=== PATIENT | female | born 1965 | race Two or more races ===

== ENCOUNTER 2021-03-18 23:35 | Inpatient (IN) | payer MEDICARE, MEDICAID ==
[~2021-03-18] VITALS: Ht 165.1 cm; Wt 136.5 kg
[2021-03-19] MEDS ORDERED: MORPHINE SULFATE 4 MG/ML CPJ (NOT FOR IM USE) IV STA (00:37)
[2021-03-19] MEDS ORDERED: ONDANSETRON HCL 4MG/2ML INJ IV STA (00:37)
[2021-03-19] MEDS ORDERED: ASPIRIN 81MG TABLET PO ONE (00:45)
[2021-03-19] MEDS ORDERED: NITROGLYCERIN OINT 1GM/INCH UDPKT TD ONE (00:45)
[2021-03-19 01:17] LABS: BASOPHILS % 0.7 % (0.0-2.0); EOSINOPHILS % 2.2 % (0.0-5.0); HEMATOCRIT. 37.1 % (36.0-48.0); HEMOGLOBIN. 12.6 g/dL (12.0-16.0); LYMPHOCYTES % 43.9 % (20.0-50.0); MEAN CORPUSCULAR HEMOGLOBIN 32.7 pg (28.0-32.0); MEAN CORPUSCULAR VOLUME 96.5 fL (81.0-99.0); MEAN PLATELET VOLUME 7.3 fl (7.4-10.4); MONOCYTES % 11.3 % (2.0-8.0); NEUTROPHILS % 41.9 % (40.0-76.0); PLATELET 263 x1000/uL (130-400); RED BLOOD CELL COUNT 3.84 mill/uL (4.2-5.4); RED CELL DISTRIBUTION WIDTH 14.9 % (11.6-14.6)
[2021-03-19 01:23] LABS: CHLORIDE 106 mEq/L (98-107)
[2021-03-19 01:40] LABS: INR 3.6; PROTHROMBIN TIME 35.1 sec (9.6-11.0)
[2021-03-19] MEDS ORDERED: IOHEXOL-350 100 ML BOTTLE ONE (02:56)
[2021-03-19] MEDS ORDERED: CEFTRIAXONE 1 G PREMIX 50 ML IV ONE (03:15)
[2021-03-19] MEDS ORDERED: MORPHINE SULFATE 2 MG/ML CPJ (NOT FOR IM USE) IV SCH (07:00)
[2021-03-19 09:40] VITALS: BP 158/68
[2021-03-19 10:00] VITALS: BP 158/68
[2021-03-19 12:00] VITALS: BP 146/66
[2021-03-19] MEDS ORDERED: OXYC-105 PO (12:12)
[2021-03-19] MEDS ORDERED: WARF10TA44 PO (12:12)
[2021-03-19] MEDS ORDERED: FURO-151 PO (12:12)
[2021-03-19] MEDS ORDERED: PROSOL IH (12:14)
[2021-03-19] MEDS ORDERED: HYDROCODONE/ACETAMINOPHEN 5/325MG TABLET PO PRN (12:15)
[2021-03-19] MEDS ORDERED: CLONIDINE 0.1MG TABLET PO PRN (12:15)
[2021-03-19] MEDS ORDERED: MAGNESIUM/ALUMINUM HYDROXIDE/SIMETHICONE 30ML UDC PO PRN (12:15)
[2021-03-19] MEDS ORDERED: ONDANSETRON HCL 4MG/2ML INJ IV PRN (12:15)
[2021-03-19] MEDS ORDERED: ACETAMINOPHEN 325MG TABLET PO PRN (12:15)
[2021-03-19] MEDS ORDERED: DOCUSATE SODIUM 100MG CAPSULE PO PRN (12:15)
[2021-03-19] MEDS ORDERED: NALOXONE HCL 0.4MG/ML VIAL IV PRN (12:45)
[2021-03-19] MEDS: FUROSEMIDE 40MG/4ML VIAL IVP SCH (12:50)
[2021-03-19] MEDS: OMEPRAZOLE 20MG CAPSULE EXTENDED RELEASE PO SCH (12:51)
[2021-03-19 15:46] LABS: *AMPHETAMINES SCREEN URINE NEGATIVE (NEGATIVE); *BENZODIAZEPINES SCREEN URINE NEGATIVE (NEGATIVE)
[2021-03-19 15:49] LABS: METHADONE URINE SCREEN NEGATIVE (NEGATIVE); OPIATES URINE SCREEN PRESUMTIVE POSITIVE (NEGATIVE)
[2021-03-19 15:52] LABS: *COCAINE SCREEN URINE NEGATIVE (NEGATIVE)
[2021-03-19 15:53] LABS: *BARBITURATES SCREEN URINE NEGATIVE (NEGATIVE)
[2021-03-19 15:56] LABS: CANNABINOID URINE SCREEN NEGATIVE (NEGATIVE); PHENCYCLIDINE URINE SCREEN NEGATIVE (NEGATIVE)
[2021-03-19 16:00] VITALS: BP 160/58
[2021-03-19] MEDS: OXYCODONE HCL/ACETAMINOPHEN 5/325MG TABLET PO PRN (16:33)
[2021-03-19] MEDS: DILTIAZEM HCL 60MG TABLET PO SCH ×2 (17:41→23:22)
[2021-03-19 20:00] VITALS: BP 114/79
[2021-03-19] MEDS: ZOLPIDEM TARTRATE 5MG TABLET PO PRN (21:08)
[2021-03-19] MEDS ORDERED: DIPHENHYDRAMINE 50MG CAPSULE PO PRN (23:15)
[2021-03-20] VITALS: BP 162/76
[2021-03-20 05:00] VITALS: BP 136/79
[2021-03-20 06:15] LABS: INR 2.2; PROTHROMBIN TIME 22.4 sec (9.6-11.0)
[2021-03-20] MEDS: OMEPRAZOLE 20MG CAPSULE EXTENDED RELEASE PO SCH (06:18)
[2021-03-20] MEDS: DILTIAZEM HCL 60MG TABLET PO SCH ×2 (06:18→12:08)
[2021-03-20 06:25] LABS: CHLORIDE 104 mEq/L (98-107)
[2021-03-20 06:34] LABS: BASOPHILS % 0.6 % (0.0-2.0); EOSINOPHILS % 1.2 % (0.0-5.0); HEMATOCRIT. 36.9 % (36.0-48.0); HEMOGLOBIN. 12.3 g/dL (12.0-16.0); LYMPHOCYTES % 33.4 % (20.0-50.0); MEAN CORPUSCULAR HEMOGLOBIN 32.1 pg (28.0-32.0); MEAN CORPUSCULAR VOLUME 96.6 fL (81.0-99.0); MEAN PLATELET VOLUME 8.1 fl (7.4-10.4); MONOCYTES % 11.4 % (2.0-8.0); NEUTROPHILS % 53.4 % (40.0-76.0); PLATELET 246 x1000/uL (130-400); RED BLOOD CELL COUNT 3.82 mill/uL (4.2-5.4); RED CELL DISTRIBUTION WIDTH 14.6 % (11.6-14.6)
[2021-03-20 06:35] LABS: T4 FREE 0.82 ng/dL (0.76-1.46)
[2021-03-20 06:36] LABS: LDL CHOLESTEROL 99 mg/dL (5-100); PHOSPHORUS 2.7 mg/dL (2.5-4.9)
[2021-03-20 06:38] LABS: HDL CHOLESTEROL 84 mg/dL (40-59)
[2021-03-20 08:00] VITALS: BP 149/63
[2021-03-20] MEDS: FUROSEMIDE 40MG/4ML VIAL IVP SCH (08:53)
[2021-03-20] MEDS: OXYCODONE HCL/ACETAMINOPHEN 5/325MG TABLET PO PRN ×2 (09:20→21:22)
[2021-03-20 12:00] VITALS: BP 136/67
[2021-03-20 16:00] VITALS: BP 144/57
[2021-03-20] MEDS: DILTIAZEM HCL 90MG TABLET PO SCH (17:22)
[2021-03-20] MEDS ORDERED: WARFARIN SODIUM 4MG TABLET PO SCH (18:00)
[2021-03-20] MEDS: IPRATROPIUM/ALBUTEROL 0.5-3(2.5)MG/3ML NEB HHN PRN (19:47)
[2021-03-20 20:00] VITALS: BP 138/71
[2021-03-20] MEDS ORDERED: ALBU6.7H9 INH (21:10)
[2021-03-20] MEDS ORDERED: CARI350T27 PO (21:11)
[2021-03-20] MEDS ORDERED: LIP40 PO (21:12)
[2021-03-20] MEDS ORDERED: PRED10TA23 PO (21:12)
[2021-03-20] MEDS ORDERED: ALBU4TAB14 PO (21:13)
[2021-03-20] MEDS ORDERED: D-ME473S50 PO (21:15)
[2021-03-20] MEDS ORDERED: DIPH50CA38 PO (21:16)
[2021-03-20] MEDS ORDERED: AMLO10TA80 PO (21:17)
[2021-03-20] MEDS ORDERED: GUAI-741 PO (21:17)
[2021-03-20] MEDS ORDERED: DICL100G16 TP (21:18)
[2021-03-20] MEDS ORDERED: GABA-532 PO (21:19)
[2021-03-20] MEDS ORDERED: TRAZ-251 PO (21:20)
[2021-03-20] MEDS ORDERED: PREG100C PO (21:20)
[2021-03-20] MEDS ORDERED: FLUT1BLS INH (21:21)
[2021-03-20] MEDS ORDERED: DULO30CA52 PO (21:21)
[2021-03-20] MEDS ORDERED: POTA-9 PO (21:22)
[2021-03-20] MEDS ORDERED: CHOL500063 PO (21:24)
[2021-03-20] MEDS ORDERED: LOSA100T32 PO (21:25)
[2021-03-20] MEDS ORDERED: [UNRECOGNIZED DRUG - OTHER] INH (21:27)
[2021-03-20] MEDS ORDERED: WARF10TA44 PO (21:30)
[2021-03-20] MEDS: ZOLPIDEM TARTRATE 5MG TABLET PO PRN (23:24)
[2021-03-21] VITALS: BP 150/69
[2021-03-21] MEDS: DILTIAZEM HCL 90MG TABLET PO SCH ×4 (00:10→17:24)
[2021-03-21 04:00] VITALS: BP 138/74
[2021-03-21] MEDS: OMEPRAZOLE 20MG CAPSULE EXTENDED RELEASE PO SCH (06:26)
[2021-03-21] MEDS ORDERED: GUAIFENESIN 600MG ER TABLET PO SCH (06:30)
[2021-03-21 07:36] LABS: BASOPHILS % 0.7 % (0.0-2.0); EOSINOPHILS % 1.8 % (0.0-5.0); HEMATOCRIT. 36.6 % (36.0-48.0); HEMOGLOBIN. 12.3 g/dL (12.0-16.0); LYMPHOCYTES % 27.4 % (20.0-50.0); MEAN CORPUSCULAR HEMOGLOBIN 32.2 pg (28.0-32.0); MEAN CORPUSCULAR VOLUME 95.8 fL (81.0-99.0); MONOCYTES % 10.7 % (2.0-8.0); NEUTROPHILS % 59.4 % (40.0-76.0); PLATELET 240 x1000/uL (130-400); RED BLOOD CELL COUNT 3.83 mill/uL (4.2-5.4); RED CELL DISTRIBUTION WIDTH 14.7 % (11.6-14.6)
[2021-03-21 07:38] LABS: INR 1.4; PROTHROMBIN TIME 14.4 sec (9.6-11.0)
[2021-03-21 08:07] VITALS: BP 133/70
[2021-03-21 08:12] LABS: CHLORIDE 105 mEq/L (98-107)
[2021-03-21] MEDS: IPRATROPIUM/ALBUTEROL 0.5-3(2.5)MG/3ML NEB HHN PRN ×2 (08:30→11:49)
[2021-03-21] MEDS: FUROSEMIDE 40MG/4ML VIAL IVP SCH (09:26)
[2021-03-21] MEDS: OXYCODONE HCL/ACETAMINOPHEN 5/325MG TABLET PO PRN (09:37)
[2021-03-21 11:11] VITALS: BP 132/71
[2021-03-21 15:36] VITALS: BP 132/78
[2021-03-21] MEDS ORDERED: DILT90TA2 PO (17:42)
[2021-03-21] MEDS ORDERED: WARFARIN SODIUM 7.5MG TABLET PO SCH (18:00)
[2021-03-21 18:02] VITALS: BP 132/78
[2021-03-21] MEDS ORDERED: FAMOTIDINE 20MG TABLET PO SCH (21:00)
== END 2021-03-21 18:46 | disposition home or self-care (01) | DRG 291 ==
LOC: ER 23:35 → MICUSO 03-19 04:42 → EDBEDREQTM 03-19 04:48 → EDBEDREQ 03-19 04:48 → 6WST 03-19 08:47
PROVIDERS: ADMIT Internal Medicine; ATTEND Internal Medicine
DX: I11.0 Hypertensive heart disease with heart failure (principal); J96.20 Acute and chronic respiratory failure, unspecified whether with hypoxia or hypercapnia; J44.1 Chronic obstructive pulmonary disease with (acute) exacerbation; J45.901 Unspecified asthma with (acute) exacerbation; E66.2 Morbid (severe) obesity with alveolar hypoventilation; Z68.43 Body mass index [BMI] 50.0-59.9, adult; I50.33 Acute on chronic diastolic (congestive) heart failure; M19.90 Unspecified osteoarthritis, unspecified site; I49.3 Ventricular premature depolarization; F17.210 Nicotine dependence, cigarettes, uncomplicated; Z96.642 Presence of left artificial hip joint; Z82.49 Family history of ischemic heart disease and other diseases of the circulatory system; Z86.718 Personal history of other venous thrombosis and embolism; Z79.01 Long term (current) use of anticoagulants; Z71.6 Tobacco abuse counseling; Z71.3 Dietary counseling and surveillance
CPT/HCPCS: 36415; 71045; 71275; 80048; 80053; 80061; 80076; 80305; 82962; 83605; 83735; 83880; 84100; 84439; 84443; 84484; 85025; 93005; 93306; 93970; 94640; 97162; 97166; 97530; 97535; 99285; J0696; J1940; J2270; J2405; Q0163; Q9967

== ENCOUNTER 2021-11-29 04:43 | Inpatient (IN) | payer MEDICARE, MEDICAID ==
[~2021-11-29] VITALS: Ht 167.6 cm; Wt 171.5 kg
[~2021-11-29 04:43] MED LIST: ALBU4TAB14 PO; ALBU6.7H9 INH; CARI350T27 PO; CHOL500063 PO; D-ME473S50 PO; DICL100G16 TP; DILT90TA2 PO; DIPH50CA38 PO; DULO30CA52 PO; FLUT1BLS INH; GABA-532 PO; GUAI-741 PO; LIP40 PO; OXYC-105 PO; POTA-9 PO; PRED10TA23 PO; PREG100C PO; TRAZ-251 PO; WARF10TA44 PO; [UNRECOGNIZED DRUG - OTHER] INH
[2021-11-29] MEDS ORDERED: MAGNESIUM 2 G PREMIX 50 ML IV STA (05:10)
[2021-11-29] MEDS ORDERED: ALBUTEROL (0.083%) 2.5MG/3ML NEB HHN STA (05:10)
[2021-11-29] MEDS ORDERED: IPRATROPIUM BROMIDE (0.02%) 0.5MG/2.5ML NEB HHN STA (05:10)
[2021-11-29] MEDS ORDERED: METHYLPREDNISOLONE SOD SUCC 125 MG/2 ML VIAL IV STA (05:10)
[2021-11-29 05:57] LABS: BASOPHILS % 1.4 % (0.0-2.0); EOSINOPHILS % 0.8 % (0.0-5.0); HEMATOCRIT. 36.5 % (36.0-48.0); HEMOGLOBIN. 12.3 g/dL (12.0-16.0); LYMPHOCYTES % 37.3 % (20.0-50.0); MEAN CORPUSCULAR HEMOGLOBIN 32.9 pg (28.0-32.0); MEAN CORPUSCULAR VOLUME 97.9 fL (81.0-99.0); MEAN PLATELET VOLUME 7.6 fl (7.4-10.4); MONOCYTES % 9.8 % (2.0-8.0); NEUTROPHILS % 50.7 % (40.0-76.0); PLATELET 272 x1000/uL (130-400); RED BLOOD CELL COUNT 3.73 mill/uL (4.2-5.4); RED CELL DISTRIBUTION WIDTH 14.9 % (11.6-14.6)
[2021-11-29] MEDS ORDERED: OXYCODONE HCL/ACETAMINOPHEN 5/325MG TABLET PO ONE (06:00)
[2021-11-29 06:02] LABS: CHLORIDE 107 mEq/L (98-107)
[2021-11-29] MEDS ORDERED: MORPHINE SULFATE 4 MG/ML CPJ (NOT FOR IM USE) IV ONE (06:45)
[2021-11-29 08:22] LABS: BG BASE EXCESS -0.7 mmol/L (-2.0-2.0); BG CARBOXYHEMOGLOBIN 2.2 % (0.5-1.5); BG DEOXYHEMOGLOBIN 4.1 % (0.0-5.0); BG FRACTION INSPIRED OXYGEN 32; BG HCO3 ACT 27.9 mmol/L (22.0-26.0); BG METHEMOGLOBIN 0.3 % (0.0-1.5); BG OXYGEN SATURATION 95.8 % (92.0-98.5); BG OXYHEMOGLOBIN 93.4 % (94.0-97.0); BG PCO2 65.2 mmHg (35.0-45.0); BG PH 7.249 (7.350-7.450); BG PO2 90.6 mmHg (75.0-100.0); BG SAMPLE SITE RIGHT RADIAL; BG TOTAL HEMOGLOBIN 12.9 g/dL (12.0-18.0); BG VENT MODE NASAL CANNULA
[2021-11-29 09:23] LABS: HEPATITIS B SURFACE ANTIGEN NEGATIVE
[2021-11-29] MEDS ORDERED: IPRATROPIUM/ALBUTEROL 0.5-3(2.5)MG/3ML NEB HHN PRN (11:45)
[2021-11-29] MEDS: DULOXETINE HCL 30MG DR CAPSULE PO SCH (11:45)
[2021-11-29] MEDS ORDERED: ENOXAPARIN 40MG/0.4ML SYR SUBCUT SCH (11:45)
[2021-11-29] MEDS ORDERED: GUAIFENESIN 200MG/10ML SUGAR FREE UDC PO PRN (11:45)
[2021-11-29] MEDS ORDERED: CLONIDINE 0.1MG TABLET PO PRN (11:45)
[2021-11-29] MEDS ORDERED: ONDANSETRON HCL 4MG/2ML INJ IV PRN (11:45)
[2021-11-29] MEDS ORDERED: HYDROCODONE/APAP 7.5/325MG 1 TAB TABLET PO PRN (11:45)
[2021-11-29] MEDS ORDERED: WARFARIN SODIUM 10MG TABLET PO SCH (11:45)
[2021-11-29] MEDS ORDERED: DOCUSATE SODIUM 100MG CAPSULE PO PRN (11:45)
[2021-11-29] MEDS ORDERED: ACETAMINOPHEN 325MG TABLET PO PRN (11:45)
[2021-11-29] MEDS ORDERED: GABAPENTIN 300MG CAPSULE PO PRN (11:45)
[2021-11-29] MEDS ORDERED: AMLODIPINE 10MG TABLET PO SCH (11:45)
[2021-11-29] MEDS: APIXABAN 5 MG TABLET PO SCH ×2 (12:15→20:31)
[2021-11-29] MEDS ORDERED: NALOXONE HCL 0.4MG/ML VIAL IV PRN (12:45)
[2021-11-29 12:47] LABS: PROTHROMBIN TIME 10.4 sec (9.6-11.0)
[2021-11-29] MEDS: HYDROMORPHONE HCL/PF 2MG/ML CPJ IV PRN ×3 (13:44→20:43)
[2021-11-29] MEDS: DILTIAZEM HCL 90MG TABLET PO SCH ×2 (13:44→18:09)
[2021-11-29] MEDS: METHYLPREDNISOLONE SOD SUCC 125 MG/2 ML VIAL IV SCH ×2 (13:44→22:11)
[2021-11-29 15:00] VITALS: BP 148/68
[2021-11-29 16:00] VITALS: BP 148/71
[2021-11-29] MEDS ORDERED: LEVOFLOXACIN 500MG PREMIX 100 ML IV SCH (16:00)
[2021-11-29] MEDS: GUAIFENESIN 200MG/10ML SUGAR FREE UDC PO SCH ×2 (17:16→20:31)
[2021-11-29 18:00] VITALS: BP 138/68
[2021-11-29] MEDS ORDERED: ATORVASTATIN CALCIUM 40MG TABLET PO SCH (21:00)
[2021-11-29] MEDS: IPRATROPIUM/ALBUTEROL 0.5-3(2.5)MG/3ML NEB HHN SCH (21:03)
[2021-11-29] MEDS ORDERED: ATORVASTATIN CALCIUM 20MG TABLET PO SCH (21:04)
[2021-11-29] MEDS: PREGABALIN 25MG CAPSULE PO SCH (22:11)
[2021-11-30] VITALS (9 sets, daily range): BP systolic 135–165; BP diastolic 63–85
[2021-11-30] MEDS: DILTIAZEM HCL 90MG TABLET PO SCH ×3 (00:05→12:46)
[2021-11-30] MEDS: IPRATROPIUM/ALBUTEROL 0.5-3(2.5)MG/3ML NEB HHN SCH ×2 (01:41→09:35)
[2021-11-30] MEDS: GUAIFENESIN 200MG/10ML SUGAR FREE UDC PO SCH ×2 (02:01→09:06)
[2021-11-30] MEDS: METHYLPREDNISOLONE SOD SUCC 125 MG/2 ML VIAL IV SCH ×2 (02:02→09:05)
[2021-11-30] MEDS: HYDROMORPHONE HCL/PF 2MG/ML CPJ IV PRN ×3 (02:02→10:32)
[2021-11-30 07:08] LABS: CHLORIDE 105 mEq/L (98-107)
[2021-11-30 07:17] LABS: BASOPHILS % 0.3 % (0.0-2.0); EOSINOPHILS % 0.1 % (0.0-5.0); HEMATOCRIT. 34.9 % (36.0-48.0); HEMOGLOBIN. 11.5 g/dL (12.0-16.0); LYMPHOCYTES % 9.1 % (20.0-50.0); MEAN CORPUSCULAR HEMOGLOBIN 32.2 pg (28.0-32.0); MEAN PLATELET VOLUME 8.1 fl (7.4-10.4); MONOCYTES % 2.7 % (2.0-8.0); NEUTROPHILS % 87.8 % (40.0-76.0); PLATELET 264 x1000/uL (130-400); RED BLOOD CELL COUNT 3.57 mill/uL (4.2-5.4); RED CELL DISTRIBUTION WIDTH 14.8 % (11.6-14.6)
[2021-11-30 07:18] LABS: LDL CHOLESTEROL 84 mg/dL (5-100)
[2021-11-30 07:19] LABS: HDL CHOLESTEROL 103 mg/dL (40-59)
[2021-11-30] MEDS ORDERED: LIDOCAINE HCL/PF 1% 2ML VIAL ONE (08:05)
[2021-11-30 08:56] LABS: BG BASE EXCESS 1.2 mmol/L (-2.0-2.0); BG CARBOXYHEMOGLOBIN 0.3 % (0.5-1.5); BG FRACTION INSPIRED OXYGEN 21; BG HCO3 ACT 26.6 mmol/L (22.0-26.0); BG METHEMOGLOBIN 0.3 % (0.0-1.5); BG OXYHEMOGLOBIN 94.4 % (94.0-97.0); BG PCO2 45.3 mmHg (35.0-45.0); BG PH 7.386 (7.350-7.450); BG SAMPLE SITE RIGHT RADIAL; BG TOTAL HEMOGLOBIN 11.8 g/dL (12.0-18.0); BG VENT MODE ROOM AIR
[2021-11-30] MEDS: APIXABAN 5 MG TABLET PO SCH (09:06)
[2021-11-30] MEDS: DULOXETINE HCL 30MG DR CAPSULE PO SCH (09:06)
[2021-11-30] MEDS: PREGABALIN 25MG CAPSULE PO SCH (09:06)
[2021-11-30] MEDS ORDERED: LEVOFLOXACIN 500MG TABLET PO SCH (16:00)
== END 2021-11-30 20:42 | disposition home health service (06) | DRG 189 ==
LOC: ER 04:43 → 5EST 08:42 → EDBEDREQSVC 10:29 → ENRESERV 14:37
PROVIDERS: ADMIT Hospitalist; ATTEND Hospitalist
PROC: 5A09357 Assistance with Respiratory Ventilation, Less than 24 Consecutive Hours, Continuous Positive Airway Pressure (ICD-10-PCS; principal; 2021-11-29)
PROC: 5A09357 Assistance with Respiratory Ventilation, Less than 24 Consecutive Hours, Continuous Positive Airway Pressure (ICD-10-PCS; 2021-11-30)
DX: J96.02 Acute respiratory failure with hypercapnia (principal); J44.1 Chronic obstructive pulmonary disease with (acute) exacerbation; D68.59 Other primary thrombophilia; E87.2 Acidosis; I50.32 Chronic diastolic (congestive) heart failure; M87.9 Osteonecrosis, unspecified; E66.2 Morbid (severe) obesity with alveolar hypoventilation; Z68.44 Body mass index [BMI] 60.0-69.9, adult; J96.01 Acute respiratory failure with hypoxia; Z96.649 Presence of unspecified artificial hip joint; F17.210 Nicotine dependence, cigarettes, uncomplicated; I11.0 Hypertensive heart disease with heart failure; Z82.49 Family history of ischemic heart disease and other diseases of the circulatory system; Z86.718 Personal history of other venous thrombosis and embolism; Z79.891 Long term (current) use of opiate analgesic; Z79.899 Other long term (current) drug therapy
CPT/HCPCS: 36415; 36600; 71045; 80053; 80061; 82375; 82805; 83880; 84145; 84484; 85025; 93005; 93970; 94640; 94644; 97161; 99291; J1170; J1956; J2270; J2930; J3475; J3490

== ENCOUNTER 2022-09-25 18:43 | Inpatient (IN) | payer MEDICARE, MEDICAID ==
[~2022-09-25] VITALS: Ht 165.1 cm; Wt 135.2 kg
[~2022-09-25 18:43] MED LIST changes: +ALBU6.7H3 INH; -ALBU6.7H9 INH; +POTA-202 PO; -POTA-9 PO
[2022-09-25] MEDS ORDERED: MORPHINE SULFATE 4 MG/ML CPJ (NOT FOR IM USE) IV STA (19:07)
[2022-09-25] MEDS ORDERED: SODIUM CHLORIDE 0.9% 1,000 ML IV ONE (19:15)
[2022-09-25 21:38] LABS: BASOPHILS % 0.2 % (0.0-2.0); HEMATOCRIT. 30.9 % (36.0-48.0); HEMOGLOBIN. 10.1 g/dL (12.0-16.0); LYMPHOCYTES % 8.7 % (20.0-50.0); MEAN PLATELET VOLUME 8.5 fl (7.4-10.4); MONOCYTES % 2.1 % (2.0-8.0); PLATELET 301 x1000/uL (130-400); RED BLOOD CELL COUNT 3.26 mill/uL (4.2-5.4); RED CELL DISTRIBUTION WIDTH 14.9 % (11.6-14.6)
[2022-09-25 21:47] LABS: CHLORIDE 100 mEq/L (98-107)
[2022-09-25 23:40] LABS: D-DIMER 0.32 mg/L FEU (<0.50); PROTHROMBIN TIME 11.2 sec (9.6-11.0)
[2022-09-26] MEDS ORDERED: SODIUM CHLORIDE 0.9% 1,000 ML IV NR (00:15)
[2022-09-26] MEDS ORDERED: MORPHINE SULFATE 4 MG/ML CPJ (NOT FOR IM USE) IV NR (00:30)
[2022-09-26] MEDS ORDERED: ONDANSETRON HCL 4MG/2ML INJ IV PRN (01:45)
[2022-09-26] MEDS ORDERED: GUAIFENESIN 200MG/10ML SUGAR FREE UDC PO PRN (01:45)
[2022-09-26] MEDS ORDERED: DOCUSATE SODIUM 100MG CAPSULE PO PRN (01:45)
[2022-09-26] MEDS ORDERED: ACETAMINOPHEN 325MG TABLET PO PRN ×2 (01:45)
[2022-09-26] MEDS ORDERED: DIPHENHYDRAMINE 50MG/ML VIAL IV PRN (01:45)
[2022-09-26] MEDS ORDERED: IPRATROPIUM/ALBUTEROL 0.5-3(2.5)MG/3ML NEB HHN PRN (01:45)
[2022-09-26] MEDS ORDERED: MAGNESIUM/ALUMINUM HYDROXIDE/SIMETHICONE 30ML UDC PO PRN (01:45)
[2022-09-26 01:48] LABS: CLARITY URINE CLOUDY (CLEAR); COLOR URINE YELLOW (YELLOW); KETONES URINE TRACE (NEGATIVE); LEUKOCYTE ESTERASE URINE NEGATIVE (NEGATIVE); NITRITE URINE NEGATIVE (NEGATIVE); OCCULT BLOOD URINE NEGATIVE (NEGATIVE); PROTEIN URINE TRACE (NEGATIVE); SPECIFIC GRAVITY URINE 1.015 (1.005-1.030); UROBILINOGEN URINE 0.2 E.U./dL (0.2-1.0)
[2022-09-26] MEDS ORDERED: AZITHROMYCIN 500MG/250ML 250 ML IV NR (03:15)
[2022-09-26] MEDS: DILTIAZEM HCL 90MG TABLET PO SCH ×3 (06:00→18:05)
[2022-09-26] MEDS: GABAPENTIN 300MG CAPSULE PO SCH ×3 (06:30→21:42)
[2022-09-26] MEDS: HYDROCODONE/ACETAMINOPHEN 5/325MG TABLET PO PRN (07:59)
[2022-09-26] MEDS ORDERED: PREGABALIN 25MG CAPSULE PO SCH (09:00)
[2022-09-26 09:21] LABS: BG BASE EXCESS -1.6 mmol/L (-2.0-2.0); BG CARBOXYHEMOGLOBIN 1.1 % (0.5-1.5); BG DEOXYHEMOGLOBIN 5.2 % (0.0-5.0); BG FRACTION INSPIRED OXYGEN 21; BG HCO3 ACT 23.5 mmol/L (22.0-26.0); BG METHEMOGLOBIN 0.1 % (0.0-1.5); BG OXYGEN SATURATION 94.7 % (92.0-98.5); BG OXYHEMOGLOBIN 93.6 % (94.0-97.0); BG PCO2 40.9 mmHg (35.0-45.0); BG PH 7.377 (7.350-7.450); BG PO2 69.4 mmHg (75.0-100.0); BG SAMPLE SITE RIGHT RADIAL; BG TOTAL HEMOGLOBIN 10.9 g/dL (12.0-18.0); BG VENT MODE ROOM AIR
[2022-09-26 10:18] VITALS: BP 138/66
[2022-09-26] MEDS ORDERED: ALBUTEROL (0.083%) 2.5MG/3ML NEB HHN PRN (10:30)
[2022-09-26] MEDS ORDERED: IPRATROPIUM BROMIDE (0.02%) 0.5MG/2.5ML NEB HHN PRN (10:30)
[2022-09-26 10:34] VITALS: BP 138/66
[2022-09-26] MEDS ORDERED: PREGABALIN 50 MG CAPSULE PO SCH (11:09)
[2022-09-26] MEDS: DULOXETINE HCL 30MG DR CAPSULE PO SCH (11:13)
[2022-09-26] MEDS: ASPIRIN 81MG EC TABLET PO SCH (11:13)
[2022-09-26] MEDS: APIXABAN 5 MG TABLET PO SCH ×2 (11:14→18:05)
[2022-09-26] MEDS: PREDNISONE 10MG TABLET PO SCH (11:14)
[2022-09-26] MEDS ORDERED: NALOXONE HCL 0.4MG/ML VIAL IV PRN (11:15)
[2022-09-26] MEDS: PREGABALIN 50 MG CAPSULE PO SCH ×2 (11:22→21:41)
[2022-09-26] MEDS ORDERED: FURO80TA3 PO (11:40)
[2022-09-26] MEDS: HYDROMORPHONE HCL/PF 2MG/ML CPJ IV PRN ×2 (11:49→22:07)
[2022-09-26 12:55] LABS: BASOPHILS % 0.1 % (0.0-2.0); HEMATOCRIT. 32.8 % (36.0-48.0); LYMPHOCYTES % 29.2 % (20.0-50.0); MEAN CORPUSCULAR HEMOGLOBIN 31.7 pg (28.0-32.0); MEAN CORPUSCULAR VOLUME 94.1 fL (81.0-99.0); MEAN PLATELET VOLUME 8.6 fl (7.4-10.4); MONOCYTES % 5.6 % (2.0-8.0); NEUTROPHILS % 65.1 % (40.0-76.0); PLATELET 317 x1000/uL (130-400); RED BLOOD CELL COUNT 3.49 mill/uL (4.2-5.4); RED CELL DISTRIBUTION WIDTH 14.9 % (11.6-14.6)
[2022-09-26 13:44] LABS: CHLORIDE 101 mEq/L (98-107)
[2022-09-26 13:49] LABS: CREATINE KINASE 126 IU/L (26-192)
[2022-09-26 13:55] LABS: HDL CHOLESTEROL 61 mg/dL (40-59); LDL CHOLESTEROL 150 mg/dL (5-100); T4 FREE 1.11 ng/dL (0.76-1.46)
[2022-09-26 14:07] LABS: CREATINE KINASE 126 IU/L (26-192)
[2022-09-26 14:18] LABS: CREATINE KINASE MB FRACTION < 1.0 ng/mL (0.5-3.6)
[2022-09-26] MEDS: SODIUM CHLORIDE 0.9% 1,000 ML IV SCH ×2 (15:05→16:26)
[2022-09-26 16:00] VITALS: BP 127/56
[2022-09-26 20:00] VITALS: BP_SYST 113; BP_SYST 114; BP_SYST 117; BP_DIAS 47; BP_DIAS 49
[2022-09-26] MEDS ORDERED: TRAZODONE HCL 50MG TABLET PO SCH (21:00)
[2022-09-26] MEDS ORDERED: ATORVASTATIN CALCIUM 40MG TABLET PO SCH (21:00)
[2022-09-26 21:23] LABS: CREATINE KINASE 100 IU/L (26-192); CREATINE KINASE MB FRACTION < 1.0 ng/mL (0.5-3.6)
[2022-09-26 23:33] VITALS: BP 121/56
[2022-09-27] MEDS: DILTIAZEM HCL 90MG TABLET PO SCH ×3 (00:23→12:00)
[2022-09-27 02:04] LABS: *AMPHETAMINES SCREEN URINE NEGATIVE (NEGATIVE); *BARBITURATES SCREEN URINE NEGATIVE (NEGATIVE); *BENZODIAZEPINES SCREEN URINE NEGATIVE (NEGATIVE); *COCAINE SCREEN URINE NEGATIVE (NEGATIVE); CANNABINOID URINE SCREEN NEGATIVE (NEGATIVE); METHADONE URINE SCREEN NEGATIVE (NEGATIVE); OPIATES URINE SCREEN PRESUMTIVE POSITIVE (NEGATIVE); PHENCYCLIDINE URINE SCREEN NEGATIVE (NEGATIVE)
[2022-09-27 04:00] VITALS: BP 115/58
[2022-09-27] MEDS: GABAPENTIN 300MG CAPSULE PO SCH ×2 (05:27→14:50)
[2022-09-27] MEDS: SODIUM CHLORIDE 0.9% 1,000 ML IV SCH (05:31)
[2022-09-27] MEDS: HYDROMORPHONE HCL/PF 2MG/ML CPJ IV PRN (05:46)
[2022-09-27 06:16] LABS: BASOPHILS % 0.4 % (0.0-2.0); EOSINOPHILS % 0.1 % (0.0-5.0); HEMATOCRIT. 30.6 % (36.0-48.0); HEMOGLOBIN. 10.4 g/dL (12.0-16.0); LYMPHOCYTES % 20.7 % (20.0-50.0); MEAN CORPUSCULAR HEMOGLOBIN 32.1 pg (28.0-32.0); MEAN CORPUSCULAR VOLUME 94.4 fL (81.0-99.0); MEAN PLATELET VOLUME 8.5 fl (7.4-10.4); MONOCYTES % 7.6 % (2.0-8.0); NEUTROPHILS % 71.2 % (40.0-76.0); PLATELET 313 x1000/uL (130-400); RED BLOOD CELL COUNT 3.24 mill/uL (4.2-5.4); RED CELL DISTRIBUTION WIDTH 14.7 % (11.6-14.6)
[2022-09-27 08:00] VITALS: BP 107/58
[2022-09-27] MEDS: ASPIRIN 81MG EC TABLET PO SCH (08:41)
[2022-09-27] MEDS: APIXABAN 5 MG TABLET PO SCH (08:41)
[2022-09-27] MEDS: DULOXETINE HCL 30MG DR CAPSULE PO SCH (08:42)
[2022-09-27] MEDS: PREDNISONE 10MG TABLET PO SCH (08:42)
[2022-09-27] MEDS: PREGABALIN 50 MG CAPSULE PO SCH (08:43)
[2022-09-27 09:16] LABS: PHOSPHORUS 3.1 mg/dL (2.5-4.9)
[2022-09-27] MEDS: HYDROCODONE/ACETAMINOPHEN 5/325MG TABLET PO PRN (10:57)
[2022-09-27] MEDS ORDERED: CEFTRIAXONE 1 G PREMIX 50 ML IV SCH (11:00)
[2022-09-27] MEDS ORDERED: CEFTRIAXONE 1,000 MG in DEXTROSE 5% WATER 50 ML IV SCH (11:00)
[2022-09-27 12:00] VITALS: BP 107/49
[2022-09-27 15:24] VITALS: BP 120/55
[2022-09-28 13:11] LABS: ANTI-NUCLEAR ANTIBODIES DIRECT Negative (Negative)
== END 2022-09-27 15:55 | disposition home health service (06) | DRG 640 ==
LOC: ER 18:43 → MICUSO 21:56 → 8WST 09-26 10:26 → 7EST 09-26 16:53
PROVIDERS: ADMIT Hospitalist; ATTEND Hospitalist
DX: E86.0 Dehydration (principal); G93.41 Metabolic encephalopathy; N17.0 Acute kidney failure with tubular necrosis; G45.9 Transient cerebral ischemic attack, unspecified; J44.0 Chronic obstructive pulmonary disease with (acute) lower respiratory infection; N39.0 Urinary tract infection, site not specified; E87.1 Hypo-osmolality and hyponatremia; R55 Syncope and collapse; D64.9 Anemia, unspecified; G89.29 Other chronic pain; I11.0 Hypertensive heart disease with heart failure; I50.9 Heart failure, unspecified; G25.0 Essential tremor; Z20.822 Contact with and (suspected) exposure to COVID-19; J20.9 Acute bronchitis, unspecified; I95.9 Hypotension, unspecified; R29.810 Facial weakness; Z96.641 Presence of right artificial hip joint; Z96.642 Presence of left artificial hip joint; G47.00 Insomnia, unspecified; R73.9 Hyperglycemia, unspecified; Z86.718 Personal history of other venous thrombosis and embolism; Z86.73 Personal history of transient ischemic attack (TIA), and cerebral infarction without residual deficits; Z98.84 Bariatric surgery status
CPT/HCPCS: 36415; 36600; 71045; 76770; 80048; 80053; 80061; 80305; 81003; 82375; 82550; 82553; 82805; 83036; 83605; 83735; 83880; 83930; 84100; 84145; 84439; 84443; 84484; 85025; 85379; 86038; 86160; 87426; 93005; 93880; 97162; 97166; 99285; J0456; J0696; J1170; J2270; J7030; J7060; J7512

== ENCOUNTER 2023-03-29 12:22 | Emergency (ER) | payer MEDICARE, MEDICAID ==
[~2023-03-29] VITALS: Ht 167.6 cm; Wt 95.0 kg
[~2023-03-29 12:22] MED LIST changes: +ASPI-1160 PO; -DIPH50CA38 PO; -GABA-532 PO; +IBUP-2030 MT; +LEVO750T68 MT; +LIDO700A30 TOP; -OXYC-105 PO
[2023-03-29 12:38] VITALS: BP 101/50; PULSE 79; RESP 18; TEMP 98.2; O2SAT 98
[2023-03-29] MEDS ORDERED: ACETAMINOPHEN 325MG TABLET PO STA (13:25)
[2023-03-29 14:02] LABS: BASOPHILS % 0.5 % (0.0-2.0); EOSINOPHILS % 2.3 % (0.0-5.0); HEMATOCRIT. 24.8 % (36.0-48.0); HEMOGLOBIN. 8.4 g/dL (12.0-16.0); LYMPHOCYTES % 32.7 % (20.0-50.0); MEAN CORPUSCULAR VOLUME 96.9 fL (81.0-99.0); MEAN PLATELET VOLUME 7.3 fl (7.4-10.4); MONOCYTES % 8.4 % (2.0-8.0); NEUTROPHILS % 56.1 % (40.0-76.0); PLATELET 419 x1000/uL (130-400); RED BLOOD CELL COUNT 2.56 mill/uL (4.2-5.4); RED CELL DISTRIBUTION WIDTH 14.7 % (11.6-14.6); WHITE BLOOD COUNT 5.5 x1000/uL (4.5-11.0)
[2023-03-29 14:03] LABS: CHLORIDE 109 mEq/L (98-107); INDEX HEMOLYSI 1 (1-3); INDEX ICTERIC 1 (1-4); INDEX LIPEMIC 1 (1-3); POTASSIUM 3.6 mEq/L (3.5-5.1); SODIUM 142 mEq/L (136-145)
[2023-03-29 14:14] LABS: ALANINE AMINOTRANSFERASE 18 IU/L (13-61); ASPARTATE AMINOTRANSFERASE 10 IU/L (15-37); BILIRUBIN TOTAL 0.1 mg/dL (0.1-1.0); CALCIUM 8.7 mg/dL (8.5-10.1); CARBON DIOXIDE 29 mEq/L (21-32); CREATININE 0.8 mg/dL (0.6-1.3); GLUCOSE 117 mg/dL (70-105); NT PRO B-TYPE NATRIURETIC PEP 147 pg/mL (5-125); PROTEIN TOTAL 6.3 g/dL (6.0-8.3); TROPONIN I HIGH SENSITIVITY 5 ng/L (<54); UREA NITROGEN BLOOD 11 mg/dL (7-21)
[2023-03-29] MEDS ORDERED: IBUPROFEN 600MG TABLET PO ONE (15:00)
== END 2023-03-29 15:36 | disposition left against medical advice (07) ==
LOC: ER 12:22
DX: R53.1 Weakness (principal); R42 Dizziness and giddiness; I11.0 Hypertensive heart disease with heart failure; I50.9 Heart failure, unspecified; J44.9 Chronic obstructive pulmonary disease, unspecified; Z79.899 Other long term (current) drug therapy
CPT/HCPCS: 36415; 71045; 80053; 83880; 84484; 85025; 93005; 99285